=== PATIENT | male | born 1995 | race Caucasian/White ===

== ENCOUNTER 2021-01-10 16:50 | Emergency (ER) | payer SELFPAY ==
[2021-01-10] MEDS ORDERED: AUGMENTIN 875-1 EACH PO (17:59)
== END 2021-01-10 18:10 | disposition home or self-care (01) ==
LOC: FER 16:50
DX: S41.151A Open bite of right upper arm, initial encounter (principal); W54.0XXA Bitten by dog, initial encounter; Y92.009 Unspecified place in unspecified non-institutional (private) residence as the place of occurrence of the external cause
CPT/HCPCS: 99283

== ENCOUNTER 2022-01-15 16:25 | Emergency (ER) | payer OTHER ==
[~2022-01-15 16:25] MED LIST: AUGMENTIN 875-1 EACH PO
[2022-01-15] MEDS ORDERED: CEPHALEXIN500 MG PO (18:09)
[2022-01-15] MEDS ORDERED: IBUPROFEN800 MG PO (18:09)
== END 2022-01-15 18:29 | disposition home or self-care (01) ==
LOC: FER 16:25
DX: M79.675 Pain in left toe(s) (principal); R22.42 Localized swelling, mass and lump, left lower limb; Z28.310 Unvaccinated for COVID-19
CPT/HCPCS: 73620